=== PATIENT | male | born 1940 | race Caucasian/White ===

== ENCOUNTER 2017-08-01 11:09 | Emergency (ER) | payer OTHER, MEDICARE ==
[~2017-08-01] VITALS: Ht 177.8 cm; Wt 103.6 kg
[2017-08-01 11:29] VITALS: BP 155/65; PULSE 53; RESP 16; TEMP 97.2; O2SAT 97
[2017-08-01] MEDS ORDERED: TERA1CAP3 PO (11:49)
[2017-08-01] MEDS ORDERED: ASPI325T PO (11:49)
[2017-08-01] MEDS ORDERED: SIMV80TA PO (11:49)
[2017-08-01] MEDS ORDERED: LISI2.5T3 PO (11:49)
[2017-08-01] MEDS ORDERED: METO25TA3 PO (11:49)
[2017-08-01] MEDS ORDERED: APIX2.5T PO (11:49)
[2017-08-01] MEDS ORDERED: FINA5TAB2 PO (11:49)
[2017-08-01] MEDS ORDERED: FLUO0.05 TOPICAL (12:58)
--- NOTE | 2017-08-01 12:59 | PD ---
HPI . Dermatitis Chief Complaint: Skin Problem Time Seen by Provider: 11:35 Travel History International Travel<30 days: No Contact w/Intl Traveler<30days: No Traveled to known affect area: No History of Present Illness HPI 77-year-old male patient presents emergency department for evaluation of area of mild redness and intense itching 1 week to the medial aspect of the right inner thigh. It is localized to the medial aspect and does not extend downward towards the knee or upper into the groin. Its predominately on the right inner thigh but the patient states the left inner thigh is itchy although there is no area of erythema. 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 The patient denies any new detergents or lotions. He does state that he is using a soap that he doesn' t normally use although he has used the soap in the past without a problem. The patient recently was treated for cellulitis to his right lower leg at a [facility] in [place]. The patient has bilateral compression hose on for his PVD. His cardiovascular surgeon is planning on doing a femoral vein bypass on his right leg when he returns to [place]. The patient has an extensive medical history including diabetes, cardiac stents and PVD. Patient denies any chest pain, shortness breath, fevers, chills, malaise, abdominal pain, nausea, vomiting, diarrhea or lightheadedness. PFSH Past Medical History Hx Anticoagulant Therapy: Yes Cardiac Catheterization: Yes Cardiovascular Problems: Yes (htn on meds, [place] with one stent) Chemotherapy: Yes Coronary Artery Disease: Yes Diabetes: Yes (type 2) Patient Takes Glucophage: No Genitourinary: Yes (PROSTATE) Hypertension: Yes Medical other: Yes (PVD) Integumentary: Yes Myocardial Infarction: Yes Tetanus Vaccination: < 5 Years Influenza Vaccination: Yes Past Surgical History Cholecystectomy: Yes Coronary Stent: Yes Tonsillectomy: Yes Social History Alcohol Use: Yes (1 BEER DAILY) Tobacco Use: No Substance Use: No Allergies-Medications (Allergen,Severity, Reaction): Coded Allergies: No Known Allergies (Verified Allergy, Unknown, 08/01/17) Reported Meds & Prescriptions Reported Meds & Active Scripts Active Fluocinonide Topical (Fluocinonide) 0.05% Cream 1 Applic TOPICAL BID Apply thin layer to affected area(s) Reported Aspirin 325 Mg Tab 325 Mg PO DAILY Terazosin (Terazosin HCl) 1 Mg Cap 1 Mg PO HS Finasteride 5 Mg Tab 5 Mg PO DAILY Do not crush. Metoprolol Tartrate 25 Mg Tab 25 Mg PO BID Lisinopril 2.5 Mg Tab Unknown Dose PO DAILY Eliquis (Apixaban) 2.5 Mg Tab 2.5 Mg PO BID Simvastatin 80 Mg Tab 80 Mg PO DAILY Review of Systems Except as stated in HPI: all other systems reviewed are Neg Physical Exam Narrative GENERAL: Well-nourished, well-developed 76-year-old male patient in no acute distress. Nontoxic appearing SKIN: 3 cm and 3 cm area of mild erythema to the right inner thigh. HEAD: Normocephalic. Atraumatic. NECK: Supple, trachea midline. No JVD or lymphadenopathy. CARDIOVASCULAR: Regular rate and rhythm without murmurs, gallops, or rubs. PVD to bilateral lower extremities. RESPIRATORY: Breath sounds equal bilaterally. No accessory muscle use. GASTROINTESTINAL: Abdomen soft, non-tender, nondistended. MUSCULOSKELETAL: No obvious deformity or cyanosis. Mild bilateral lower extremity edema, bilateral compression hose in place. Data Data Last Documented VS Vital Signs Date Time Temp Pulse Resp B/P (MAP) Pulse Ox O2 Delivery O2 Flow Rate FiO2 08/01/17 11:29 97.2 53 16 155/65 (95) 97 Orders Orders Ed Discharge Order (08/01/17 12:59) [facility] Medical Decision Making Medical Screen Exam Complete: Yes Emergency Medical Condition: Yes Differential Diagnosis Differential diagnosis include but not limited to contact dermatitis, eczema, psoriasis, cellulitis Narrative Course 77-year-old male patient presents emergency department for evaluation of a small 3 cm 3 cm area of mild erythema to the right inner thigh. There are no signs or symptoms of this area being infected, there is no purulent drainage, discharge, foul odor, streaking. Patient has no systemic symptoms related to the rash. The rash has been ongoing 1 week. Patient states he first noticed it when he boarded the airplane to [place] for a week ago. The area is intensely itchy. The patient has been using Aveeno anti-itch cream on it. The patient states he has had a long history of dermatological issues due to his "itchy skin". The patient denies any new lotions or detergents, he however states that he is using a soap that he doesn't normally use that he is used to in the past without a problem. The area is localized to the right inner thigh and does not extend down to the knee or up into the groin. The patient states the left inner thigh is also itchy but there is no area of erythema that can be seen. Based on patient's symptoms, clinical presentation, vital sign review and physical exam it is not necessary to admit the patient to the hospital or keep the patient in the emergency department for further evaluation. Patient will be given a prescription for a fluocinolone cream and discharged home with instructions to keep the area clean and dry, use a cold compress to help with itching, follow-up with primary care and return to the emergency Department with any signs of secondary infection. Patient comfortable with this plan of care and states the reasons to return to the emergency department. Patient thankful for care. Diagnosis Primary Impression: Contact dermatitis Qualified Codes: L25.9 - Unspecified contact dermatitis, unspecified cause Referrals: Primary Care Physician Patient Instructions: Contact Dermatitis (DC), General Instructions Additional Instructions: Please return to emergency department if you notice any signs or symptoms of secondary infection. Follow up with your primary care provider. Apply fluocinonide cream twice a day until rash resolves. May use cold compress to ease itching. May use Benadryl at night to help with itch control. Keep skin clean and dry. Med/Other Pt SpecificInfo: Prescription(s) given Scripts Fluocinonide Topical (Fluocinonide Topical) 0.05% Cream 1 APPLIC TOPICAL BID, #120 GM 0 Refills Apply thin layer to affected area(s) Prov: Aura Taylor 08/01/17 Disposition: 01 DISCHARGE HOME Condition: Stable Aura Taylor Aug 01, 2017 12:59
== END 2017-08-01 13:19 | disposition home or self-care (01) ==
LOC: PHEFT 11:09
DX: L25.9 Unspecified contact dermatitis, unspecified cause (principal); I10 Essential (primary) hypertension; E11.9 Type 2 diabetes mellitus without complications; Z79.01 Long term (current) use of anticoagulants
CPT/HCPCS: 99283